=== PATIENT | female | born 1955 ===

== ENCOUNTER 2019-03-09 09:47 | Observation (INO) | payer MEDICARE ==
[~2019-03-09 09:47] MED LIST: Buffered Lidocaine 1% SYRIN* 1 ML/SYRINGE INTRADERM ONE; Famotidine IV* 10 MG/ML 2 ML (20 mg) IV ONE; Lactated Ringers 1000 ML Bag* 1,000 ML IV SCH
[2019-03-09] MEDS ORDERED: Famotidine IV* 10 MG/ML 2 ML (20 mg) ONE (10:57)
[2019-03-09] MEDS ORDERED: fentaNYL* 50 MCG/ML 2 ML VIAL (100 MCG VIAL) ONE (11:15)
[2019-03-09] MEDS ORDERED: Midazolam* 1 MG/ML 5 ML VIAL (5 MG) ONE (11:15)
[2019-03-09] MEDS ORDERED: Propofol* 10 MG/ML 20 ML BTL ONE (11:15)
[2019-03-09] MEDS ORDERED: Ondansetron INJ* 2 MG/ML VIAL ONE (11:15)
[2019-03-09] MEDS ORDERED: Lidocaine 2% PF * 5 ML VIAL ONE (11:15)
[2019-03-09] MEDS ORDERED: Dexamethasone IV* 4 MG/ML 1 ML (4 MG) ONE (11:15)
[2019-03-09] MEDS ORDERED: DiMENhydriNATE IV* 50 MG/ML VIAL IV PUSH PRN (11:28)
[2019-03-09] MEDS ORDERED: Naloxone* 0.4 MG/ML 1 ML VIAL IV PRN (11:28)
[2019-03-09] MEDS ORDERED: Acetaminophen TAB* 325 MG PO PRN (17:35)
[2019-03-09] MEDS ORDERED: LORazepam TAB(*) 0.5 MG PO PRN (17:35)
[2019-03-09] MEDS ORDERED: Magnesium Hydroxide LIQ* 30 ML UDC PO PRN (17:35)
[2019-03-09] MEDS ORDERED: Polyethylene Glycol 3350* 17 GM PACKET PO SCH (19:00)
[2019-03-09] MEDS ORDERED: Montelukast Sodium TAB* 10 MG PO SCH (19:00)
--- NOTE | 2019-03-09 19:02 | HP ---
CC: Dr. Rigoberto Nunn; Dr. Juma Mcmahan * HISTORY AND PHYSICAL: DATE OF ADMISSION: 03/09/19 TIME OF EVALUATION: 5:15 p.m. PRIMARY CARE PROVIDER: Dr. Rigoberto Nunn. INSPECTOR BALANCE BRIDGE: Dr. Juma Mcmahan. CHIEF COMPLAINT: "Her oxygen level is low" as per Dr. Mcmahan. HISTORY OF PRESENT ILLNESS: Ms. Corea is a 63-year-old female with a past medical history of profound mental retardation, epilepsy, long-term resident, who presented to the hospital for routine colonoscopy. As per Dr. Mcmahan, the procedure went well and she required minimal sedation, but she was noted to have an oxygen saturation in the high 80s requiring supplemental O2. The patient is nonverbal and cannot provide any meaningful history. During my evaluation, she kept trying to remove her nasal cannula and the nurse had to be very close to her to make sure she keeps her oxygen on. PAST MEDICAL HISTORY: 1. Epilepsy. 2. Profound mental retardation. 3. Impaired gait. The patient uses a wheelchair. 4. Hypothyroidism. FAMILY HISTORY: Unable to obtain from the patient and as per records, she has an unknown family history. SOCIAL HISTORY: No history of alcohol, drug or tobacco use. She lives in a long-term in [place]. Next of kin is her aunt, Demetria Honeycutt, phone number is [phone] and the nurse at her long-term is Zoila Boles, phone number is [phone]. REVIEW OF SYSTEMS: I am unable to obtain review of systems from the patient. PHYSICAL EXAMINATION GENERAL: The patient is an elderly lady, appears stated age, well groomed, sitting up in the stretcher, in no acute distress, but restless, trying to remove nasal cannula. VITAL SIGNS: Temperature 97.7, heart rate is 62, respiratory rate is 19, oxygen saturation is 91% on 2 L nasal cannula, blood pressure is 133/83. HEENT: Pupils are equal. Moist mucous membranes. CHEST: Breath sounds present bilaterally with no added sounds. CVS: Normal S1, S2. Regular rate and rhythm. ABDOMEN: Soft, nontender, nondistended. Bowel sounds present. EXTREMITIES: No edema. NEURO: The patient is alert. Unable to assess orientation. She does not follow commands. Physical examination is limited due to the patient's lack of cooperation. When I came to examine her, she turned to the other side and when I moved to the other side of the bed, she then turned to the opposite side, so it was a little challenging to be able to examine her. ASSESSMENT AND PLAN: Ms. Corea is a 63-year-old female with a past medical history of profound mental retardation and seizure disorder, who presented for an elective colonoscopy and was noted to be hypoxic after the procedure. 1. Hypoxia. Etiology is unclear at this time. On auscultation, I do not hear any adventitious sounds, but physical examination is limited. I will check a chest x- ray as I think one of the issues is probably atelectasis due to poor respiratory effort. The patient has kyphosis and that could also cause certain degree of restrictive respiratory failure. Aspiration is a possibility, but seems to be unlikely at this point. I will hold off antibiotics for now and continue to monitor. We will continue supplemental oxygen and the patient will need close supervision to keep the nasal cannula on. 2. Epilepsy. The patient will be placed on seizure precautions and as per long-term note, the patient is to have her helmet on at all times during ambulation. She will be continued on gabapentin and lamotrigine. 3. Hypothyroidism. The patient will be continued on levothyroxine. 4. DVT prophylaxis: The patient has a score of 2 on the DVT Prophylaxis Risk Assessment Guide and she will be started on subcutaneous heparin. 5. Code status is full. TIME SPENT: Approximately 45 minutes was spent with the patient's physical examination, medical records review to complete this admission, more than half of this time was spent [id number] with the patient and coordination of care. [id number]/[facility] #: [id number] [facility] CENTERCamilo
[2019-03-09 20:24] LABS: ABS Lymphocytes 0.9 10^3/ul (1.0-4.8); ABS Monocytes 0.1 10^3/ul (0-0.8); ABS Neutrophils 4.3 10^3/ul (1.5-7.7); Eosinophil % 0.1 %; Hematocrit 41 % (35-47); Hemoglobin 13.7 g/dL (12.0-16.0); Lymphocyte % 17.2 %; Mean Corpuscular HGB Conc 33 g/dL (31-36); Mean Corpuscular Hemoglobin 30 pg (27-31); Mean Corpuscular Volume 89 fL (80-97); Nucleated Red Blood Cells % 0.1; Platelet Count 218 10^3/uL (150-450); Red Blood Count 4.62 10^6 /uL (3.70-4.87); Red Cell Distribution Width 13 % (10-15); White Blood Count 5.2 10^3/uL (3.5-10.8)
[2019-03-09 20:41] LABS: Albumin 3.9 g/dL (3.2-5.2); Albumin/Globulin Ratio 1.3 (1-3); BUN/Creatinine Ratio 16.1 (8-20); Calcium 9.2 mg/dL (8.6-10.3); EGFR Non-African American 97.5 (>60); Potassium 3.6 mmol/L (3.5-5.0); Total Bilirubin 0.4 mg/dL (0.2-1.0); Total Protein 6.9 g/dL (6.4-8.9)
[2019-03-09] MEDS: Gabapentin CAP(*) 300 MG PO SCH (22:46)
[2019-03-09] MEDS: lamoTRIgine TAB(*) 100 MG PO SCH (22:51)
[2019-03-09] MEDS: Heparin VIAL(*) 5000 UNITS/ML VIAL (FIVE THOUSAND) SUBCUT SCH (22:51)
--- NOTE | 2019-03-10 00:52 | PRO ---
CC: Primary Care Physician * COLONOSCOPY REPORT: DATE OF PROCEDURE: 03/09/19 - ROOM #336 INDICATION FOR PROCEDURE: Average risk screening colonoscopy. PROCEDURE PERFORMED: Complete colonoscopy to the cecum. MEDICATIONS GIVEN: Please see Anesthesia record. DESCRIPTION OF PROCEDURE: After the colonoscopy procedure including the risks, benefits, and alteratives were explained to the healthcare proxy, Demetria, informed written consent was obtained. Medication was given by the anesthesia service and a rectal exam was performed. The rectal exam was unremarkable. The adult Olympus colonoscope was then inserted into the patient's rectum and advanced very carefully through the entirety of the colon, into the cecal base. Cecal base was carefully inspected and normal in appearance. The terminal ileal valve was identified and normal in appearance. The preparation was good. A photograph was taken of the cecal cap. Over the next 7 minutes, the scope was carefully withdrawn, inspecting the mucosa. There were no polyps or lesions identified. On return to the rectum, direct views were normal. On retroflexion, the views were normal as well. The scope was then removed from the patient. She tolerated the procedure well. She returned to the recovery room in stable condition. IMPRESSION: 1. Complete colonoscopy to the cecum. 2. Normal colonoscopy. 3. Good prep. RECOMMENDATIONS: Repeat colonoscopy in 10 years if her health remain stable. In the PACU area, the patient was noted to have an oxygen saturation of 85% to 88%, very little sedation was actually given for the procedure through the anesthesia service. Out of an abundance of caution, given the lower saturation , we discussed admitting the patient to the hospital overnight to monitor her and to make sure that her oxygen saturation increases appropriately. I discussed the case with Dr. Tucker, the hospitalist, who has agreed to admit Kami to the hospital over the evening. [id number]/[facility] #: [id number] CAROL
[2019-03-10] MEDS ORDERED: Levothyroxine TAB* 88 MCG TAB PO SCH (06:00)
[2019-03-10] MEDS ORDERED: Folic Acid TAB* 1 MG PO SCH (07:00)
[2019-03-10] MEDS ORDERED: Hydrochlorothiazide TAB* 25 MG PO SCH (07:00)
[2019-03-10] MEDS ORDERED: Potassium Chlor TAB* 10 MEQ TAB.ER PO SCH (07:00)
[2019-03-10] MEDS: Heparin VIAL(*) 5000 UNITS/ML VIAL (FIVE THOUSAND) SUBCUT SCH ×2 (07:12→14:26)
[2019-03-10] MEDS: Docusate CAP* 100 MG PO SCH ×2 (08:04→08:50)
[2019-03-10] MEDS: Calcium Polycarbophil TAB* 625 MG PO SCH ×2 (08:05→08:48)
[2019-03-10] MEDS: Gabapentin CAP(*) 300 MG PO SCH ×2 (08:46→14:32)
[2019-03-10] MEDS: lamoTRIgine TAB(*) 100 MG PO SCH (08:46)
[2019-03-10] MEDS ORDERED: Sodium Phosphate ADULT ENEMA* 118 ml bottle PRN (09:00)
[2019-03-10 12:18] VITALS: BP 111/66
--- NOTE | 2019-03-10 21:33 | DS ---
CC: Dr. Nunn; Dr. Mcmahan * DISCHARGE SUMMARY: DATE OF ADMISSION: 03/09/19 DATE OF DISCHARGE: 03/10/19 PRIMARY CARE PROVIDER: Dr. Nunn. INFORMATION TECHNOLOGY TEACHER: Dr. Mcmahan. DISCHARGE DIAGNOSIS: Hypoxia, likely secondary to sedation for colonoscopy in the setting of atelectasis and kyphosis. SECONDARY DIAGNOSES: 1. Epilepsy. 2. Profound mental retardation. 3. Impaired gait. 4. Hypothyroidism. MEDICATION LIST: 1. Acetaminophen 500 mg p.o. q.4 hours p.r.n. pain or fever. 2. Calcium polycarbophil 625 mg p.o. b.i.d. 3. Colace 100 mg p.o. b.i.d. 4. Folic acid 1 mg p.o. at 7 a.m. 5. Gabapentin 300 mg p.o. t.i.d. 6. Hydrochlorothiazide 12.5 mg p.o. at 7 a.m. 7. Lactulose 20 g p.o. 7 a.m. 8. Lamotrigine 200 mg p.o. b.i.d. 9. Levothyroxine 88 mcg p.o. at 7 a.m. 10. Lorazepam 0.5 mg p.o. t.i.d. as needed prior to procedure. 11. Milk of magnesia 30 mL p.o. every third day if no bowel movement. 12. Montelukast 10 mg p.o. at 7 p.m. 13. MiraLAX 17 g p.o. at 7 p.m. 14. Potassium chloride 10 mEq p.o. at 7 a.m. 15. Fleet Enema 1 bottle per rectum every fourth day if no bowel movement. HOSPITAL COURSE: Ms. Corea is a 63-year-old female with a past medical history as stated above that presented to [facility] on 03/09/19 for an elective colonoscopy. After the procedure while in the PACU, the patient was noted to have oxygen saturation in the mid to high 80s and required supplemental oxygen. The patient is unable to provide any meaningful history, but on my evaluation, she did not appear to be tachycardic. She had laboratory tests that showed no significant leukocytosis or electrolyte imbalances. A chest x-ray showed low lung volumes, no evidence for acute findings. I believe the patient's low oxygen saturation was probably secondary to sedation in combination with atelectasis. This morning, the patient's oxygen saturation is greater than 90% on room air. This was checked multiple times and the last one was 96% on room air. The patient appears to be at her baseline , was able to tolerate diet and she is medically stable for discharge at this time. I did contact the nurse at her snf (Ms. Zoila Boles) and after gathering collateral information about the patient, the decision is for the patient to be discharged back to her snf today and her oxygen saturation will be checked twice a day until she follows up with Dr. Nunn next week. Initially in the PACU, there was some concern for aspiration, although I do not see any evidence of it at this time. Ms. Boles was informed that if the patient's saturation is below 90%, if she has dyspnea, significant cough or fever, she should return to the emergency department for further evaluation. At this point, I do not think an antibiotic is indicated as the patient has no signs of infection whatsoever. PHYSICAL EXAMINATION: Vital Signs: Temperature 98.9, heart rate is 89, respiratory rate is 18, oxygen saturation 96% on room air, blood pressure is 111 /66. General: The patient is an elderly lady, sitting up in a chair, in no acute distress, but restless. CVS: Normal S1, S2. Regular rate and rhythm. Chest: Breath sounds bilaterally with no added sounds. Abdomen is soft. Bowel sounds are present. Neuro/Mental Status: The patient is alert. Unable to assess orientation. She does not follow commands, but appears to move all 4 extremities on her own volition. DIET: Regular diet, cut food into half an inch pieces. DISPOSITION: To snf. ACTIVITIES: As tolerated. STATUS WHILE IN THE HOSPITAL: Observation. CONDITION AT THE TIME OF DISCHARGE: Fair. Please keep in mind this is a summarized version of this patient's hospital stay. If you need more information, please feel free to call me at [phone] or please obtain the full medical records. TIME SPENT: Approximately 45 minutes was spent to complete this discharge. [id number]/[facility] #: [id number] MTDD
== END 2019-03-10 15:30 | disposition home or self-care (01) ==
LOC: OR 09:47 → SSU 19:14
PROVIDERS: ADMIT Internal Medicine; ATTEND Internal Medicine
DX: R09.02 Hypoxemia (principal); G40.909 Epilepsy, unspecified, not intractable, without status epilepticus; F73 Profound intellectual disabilities; R26.9 Unspecified abnormalities of gait and mobility; E03.9 Hypothyroidism, unspecified; Z79.899 Other long term (current) drug therapy
CPT/HCPCS: 36415; 71045; 80053; 85025; 96372; A9270-GY; G0378; J1100; J1644; J2250; J2405; J2704; J3010